=== PATIENT | female | born 1995 | race American Indian/Alaskan Native ===

== ENCOUNTER 2018-07-17 10:19 | Emergency (ER) | payer MEDICAID, OTHER ==
[2018-07-17] MEDS ORDERED: NACL 0.9% 1000 ML 1,000 ML IV ONE (11:00)
[2018-07-17] MEDS ORDERED: REGLAN IV ONE (11:00)
--- NOTE | 2018-07-17 11:03 | Emergency Department Report ---
HPI - General Chief Complaint: Nausea/Vomiting/Diarrhea Time Seen by Provider: 07/17/18 10:55 - HPI HPI: Room 18 The patient is a 23-year-old female presenting with a chief complaint abdominal pain nausea vomiting. The patient states she is and her last menstrual cycle occurred 06/06/2018. The patient states she has not yet seen an ENVIRONMENTAL PROGRAMS MANAGER fo r this . Patient states for the past 2-3 week she's had intermittent lower abdominal pain associated with nausea and vomiting. Patient denies diarrhea, fever, dysuria or hematuria. Patient states her breasts have been tender Location: [See above] Duration: 2-3 weeks Quality: Pain Severity: Moderate Modifying factors: [see above] Context: [see above] Mode of transportation: [not driving] ED Past Medical Hx - Past Medical History Hx Asthma: Yes - Surgical History Past Surgical History?: No - Family History Family history: no significant - Social History Smoking Status: Never Smoker Substance Use Type: None (denies illicit drug use) - Medications Home Medications: Home Medications Medication Instructions Recorded Confirmed Last Taken Type Nitrofurantoin Monohyd/M-Cryst 100 mg PO Q12H #20 capsule 04/24/18 Unknown Rx [Macrobid 100 mg Capsule] ED Review of Systems ROS: Stated complaint: NAUSEA/STOMACH/HEADACHES Other details as noted in HPI Constitutional: denies: fever Eyes: denies: eye pain ENT: denies: throat pain Respiratory: no symptoms reported Cardiovascular: denies: chest pain Endocrine: no symptoms reported Gastrointestinal: abdominal pain, nausea, vomiting, constipation. denies: diarrhea Genitourinary: denies: dysuria, hematuria Musculoskeletal: denies: back pain Neurological: denies: headache Physical Exam - Physical Exam Vital Signs: Vital Signs 07/17/18 10:36 Temperature 98.3 F Pulse Rate 76 Respiratory 16 Rate Blood Pressure 100/42 O2 Sat by Pulse 100 Oximetry Physical Exam: GENERAL: The patient is well-developed well-nourished female lying on stretcher not appearing to be in acute distress. [] HEENT: Normocephalic. Atraumatic. Extraocular motions are intact. Patient has moist mucous membranes. NECK: Supple. Trachea midline CHEST/LUNGS: Clear to auscultation. There is no respiratory distress noted. HEART/CARDIOVASCULAR: Regular. There is no tachycardia. There is no gallop rub or murmur. ABDOMEN: Abdomen is soft, with mild discomfort to palpation in the right lower quadrant and suprapubic region. Patient has normal bowel sounds. There is no abdominal distention. SKIN: There is no rash. There is no edema. There is no diaphoresis. NEURO: The patient is awake, alert, and oriented. The patient is cooperative. The patient has normal speech MUSCULOSKELETAL: There is no evidence of acute injury. ED Course Vital Signs 07/17/18 10:36 Temperature 98.3 F Pulse Rate 76 Respiratory 16 Rate Blood Pressure 100/42 O2 Sat by Pulse 100 Oximetry ED Medical Decision Making - Lab Data Result diagrams: 07/17/18 11:03 07/17/18 11:03 Laboratory Tests 07/17/18 07/17/18 07/17/18 11:03 11:03 11:03 WBC 6.6 RBC 3.64 L Hgb 11.5 Hct 33.9 MCV 93 MCH 32 MCHC 34 RDW 12.8 L Plt Count 222 Lymph % (Auto) 23.0 [place] % (Auto) 8.1 H Eos % (Auto) 1.4 Baso % (Auto) 0.3 Lymph # 1.5 [place] # 0.5 Eos # 0.1 Baso # 0.0 Seg Neutrophils % 67.2 Seg Neutrophils # 4.4 Sodium 136 L Potassium 3.7 Chloride 105.1 Carbon Dioxide 23 Anion Gap 12 BUN 8 Creatinine 0.4 L Estimated GFR > 60 BUN/Creatinine Ratio 20 Glucose 86 Calcium 8.4 Total Bilirubin 0.30 AST 12 ALT 7 Alkaline Phosphatase 48 Total Protein 5.8 L Albumin 3.6 L Albumin/Globulin Ratio 1.6 Lipase 32 HCG, Quant 00207 H Urine Color Urine Turbidity Urine pH Ur Specific [place] Urine Protein Urine Glucose (UA) Urine Ketones Urine Blood Urine Nitrite Urine Bilirubin Urine Urobilinogen Ur Leukocyte Esterase Urine WBC (Auto) Urine RBC (Auto) U Epithel Cells (Auto) Urine Bacteria (Auto) Urine Mucus 07/17/18 11:27 WBC RBC Hgb Hct MCV MCH MCHC RDW Plt Count Lymph % (Auto) [place] % (Auto) Eos % (Auto) Baso % (Auto) Lymph # [place] # Eos # Baso # Seg Neutrophils % Seg Neutrophils # Sodium Potassium Chloride Carbon Dioxide Anion Gap BUN Creatinine Estimated GFR BUN/Creatinine Ratio Glucose Calcium Total Bilirubin AST ALT Alkaline Phosphatase Total Protein Albumin Albumin/Globulin Ratio Lipase HCG, Quant Urine Color Yellow Urine Turbidity Clear Urine pH 6.0 Ur Specific [place] 1.029 Urine Protein <15 mg/dl Urine Glucose (UA) Neg Urine Ketones Neg Urine Blood Neg Urine Nitrite Neg Urine Bilirubin Neg Urine Urobilinogen 2.0 Ur Leukocyte Esterase Tr Urine WBC (Auto) 2.0 Urine RBC (Auto) 2.0 U Epithel Cells (Auto) 3.0 Urine Bacteria (Auto) 1+ Urine Mucus Few - Differential Diagnosis , UTI, ectopic Critical care attestation.: If time is entered above; I have spent that time in minutes in the direct care of this critically ill patient, excluding procedure time. ED Disposition Clinical Impression: , Abdominal pain, bradycardia Disposition: - TO HOME OR SELFCARE Is pt being admited?: No Does the pt Need Aspirin: No Condition: Stable Additional Instructions: Return to the emergency department immediately should you develop worsening symptoms, fever, inability to tolerate food or liquid or any other concerns. Referrals: PRIMARY MD DAREK [Primary Care Provider] - 3-5 Days NAMITA VILLA MD [Staff Physician] - 3-5 Days (Dr. Villa is an ENVIRONMENTAL PROGRAMS MANAGER. Please follow-up with her for further evaluation) Time of Disposition: 14:05
[2018-07-17 11:21] LABS: Basophils % (Auto) 0.3 % (0.0-1.8); Eosinophils # (Auto) 0.1 K/mm3 (0.0-0.4); Eosinophils % (Auto) 1.4 % (0.0-4.3); Hematocrit 33.9 % (30.3-42.9); Hemoglobin 11.5 gm/dl (10.1-14.3); Lymphocytes # (Auto) 1.5 K/mm3 (1.2-5.4); Mean Corpuscular HGB Conc 34 % (30-34); Mean Corpuscular Volume 93 fl (79-97); Monocytes # (Auto) 0.5 K/mm3 (0.0-0.8); Monocytes % (Auto) 8.1 % (0.0-7.3); Platelet Count 222 K/mm3 (140-440); Red Blood Count 3.64 M/mm3 (3.65-5.03); Red Cell Distribution Width 12.8 % (13.2-15.2)
[2018-07-17 11:34] LABS: Alanine Aminotransferase 7 units/L (7-56); Albumin 3.6 g/dL (3.9-5); BUN/Creatinine Ratio 20; Blood Urea Nitrogen 8 mg/dL (7-17); Calcium 8.4 mg/dL (8.4-10.2); Hemolysis Index 7
[2018-07-17 11:43] LABS: Bacteria,Urine 1+ /HPF (Negative); Bilirubin,Urine NEG (Negative); Blood,Urine NEG (Negative); Color,Urine Yellow (Yellow); Mucus,Urine FEW /HPF; Protein,Urine <15 mg/dL mg/dL (Negative)
--- NOTE | 2018-07-17 13:47 | Ultrasound Report ---
ULTRASOUND OB LESS THAN 14 WEEKS FETUS ULTRASOUND OB TRANSVAGINAL History: Abdominal pain during , beta hCG level of 34,605. Technique: Transabdominal and transvaginal ultrasound imaging. Comparison: None. Findings: The uterus is retroflexed. The uterus measures 9.8 x 6.7 x 7.3 cm. No uterine mass is appreciated. An intrauterine gestational sac containing a small pole and yolk sac is identified. heart rate measures 62 beats per minute. No subchorionic hemorrhage is detected. The cervix is unremarkable. [place] rump length measures 3.8 mm which correlates with a 6 week 0 day . The right ovary measures 3.9 x 2.8 x 3.7 cm. A 2.3 cm cyst is identified in the right ovary. The left ovary measures 3.4 x 2.5 x 3.1 cm. A 2.7 cm cyst is identified in the left ovary. Impression: Viable, single intrauterine as described. heart rate is slightly low measuring 62 beats per minutes. Bilateral ovarian cysts.
[2018-07-17 14:58] VITALS: BP 84/53
== END 2018-07-17 15:01 | disposition home or self-care (01) ==
LOC: ED 10:19 → MERGE 10:19 → ED 15:01
DX: O21.9 Vomiting of pregnancy, unspecified (principal); O99.511 Diseases of the respiratory system complicating pregnancy, first trimester; J45.909 Unspecified asthma, uncomplicated; Z3A.01 Less than 8 weeks gestation of pregnancy
CPT/HCPCS: 36415; 76801; 76817; 80053; 81001; 83690; 84702; 85025; 96361; 96374; 99284; J2765; J7030

== ENCOUNTER 2018-08-31 15:36 | Emergency (ER) | payer MEDICAID, OTHER ==
--- NOTE | 2018-08-31 16:52 | Emergency Department Report ---
Blank Doc - Documentation Documentation: This is a 23 y.o. female that presents with flu-like and 12 weeks . She also complains of vaginal spotting that started last night. LMP 06/06/18, A0. This initial assessment diagnostic orders/clinical plan/treatment(s) is/are subject to change based on patient's health status, clinical progression and re- assessment by fellow clinical providers in the ED. Further treatment and workup at subsequent clinical providers discretion. Patient/guardians urged not to elope from ED s their condition may be serious if not clinically assessed and managed. Initial orders include: 1- Labs Fast track for further evaluation.
[2018-08-31 17:22] LABS: Hemoglobin 12.8 gm/dl (10.1-14.3); Mean Corpuscular HGB Conc 34 % (30-34); Mean Corpuscular Volume 93 fl (79-97); Platelet Count 238 K/mm3 (140-440); Red Blood Count 4.11 M/mm3 (3.65-5.03); Red Cell Distribution Width 12.8 % (13.2-15.2)
[2018-08-31 17:35] LABS: Bacteria,Urine 1+ /HPF (Negative); Bilirubin,Urine NEG (Negative); Blood,Urine NEG (Negative); Color,Urine Yellow (Yellow); Mucus,Urine 1+ /HPF
[2018-08-31 18:42] LABS: Basophils % (Manual) 0 % (0.0-1.8); Monocytes % (Manual) 0 % (0.0-7.3); RBC Morphology Normal; Total Cells Counted 100
[2018-08-31] MEDS ORDERED: TYLENOL PO ONE (19:39)
[2018-08-31] MEDS ORDERED: ROCEPHIN IM ONE (19:39)
[2018-08-31] MEDS ORDERED: XYLOCAINE 1% MPF 5 mL INFILTRATI ONE (19:39)
[2018-08-31] MEDS ORDERED: ZOFRAN ODT PO ONE (19:39)
--- NOTE | 2018-08-31 20:07 | Emergency Department Report ---
ED General Adult HPI - General Chief complaint: Upper Respiratory Infection Stated complaint: 12WKS PREG/FLU LIKE SYMPTOMS Time Seen by Provider: 08/31/18 16:49 Source: patient Mode of arrival: Ambulatory Limitations: No Limitations - History of Present Illness Initial comments: Pt is a 23 y/o aaf 12 weeks G2, P1, A0 with hx of asthma who presents for abd pain cramping and cough with noc wheezing abd pain described as cramping with vaginal spotting last vaginal spotting yesterday , there is no n/v no fever or chills pt does endorse urinary frequency no urgency no hematuria no back pain no hx of renal stones, uri symptoms include productive cough yellow rhinorrhea noc wheezing no fever noted in triage symptoms are exacerbated by environmental exposure symptoms are relieved by rest. Onset/Timin -: days(s) Location: abdomen (superpubic ) Radiation: non-radiation Severity scale (0 -10): 2 Quality: other (cramping ) Consistency: intermittent Improves with: rest Worsens with: movement Associated Symptoms: cough, shortness of breath Treatments Prior to Arrival: none - Related Data Previous Rx's Medication Instructions Recorded Last Taken Type Nitrofurantoin Monohyd/M-Cryst 100 mg PO Q12H #20 capsule 04/24/18 Unknown Rx [Macrobid 100 mg Capsule] ALBUTEROL Inhaler(NF) [VENTOLIN 2 puff IH Q4H PRN #1 inha 08/31/18 Unknown Rx Inhaler(NF)] Acetaminophen [Tylenol] 650 mg PO QID PRN #30 capsule 08/31/18 Unknown Rx Azithromycin [Zithromax Z-RENZO] 250 mg PO DAILY #6 tab 08/31/18 Unknown Rx guaiFENesin 400 mg PO Q4H PRN #24 tablet 08/31/18 Unknown Rx predniSONE [Deltasone] 40 mg PO QDAY 5 Days #10 tab 08/31/18 Unknown Rx Allergies Allergy/AdvReac Type Severity Reaction Status Date / Time No Known Allergies Allergy Unverified 04/23/18 20:50 ED Review of Systems ROS: Stated complaint: 12WKS PREG/FLU LIKE SYMPTOMS Other details as noted in HPI Constitutional: denies: chills, fever Eyes: denies: eye pain, eye discharge, vision change ENT: ear pain, congestion Respiratory: cough, shortness of breath, wheezing Cardiovascular: denies: chest pain, palpitations Endocrine: no symptoms reported Gastrointestinal: abdominal pain Genitourinary: frequency. denies: urgency, dysuria, hematuria, discharge, abnormal menses, dyspareunia Musculoskeletal: denies: back pain, joint swelling, arthralgia Skin: denies: rash, lesions Neurological: denies: headache, weakness, paresthesias Psychiatric: denies: anxiety, depression Hematological/Lymphatic: denies: easy bleeding, easy bruising ED Past Medical Hx - Past Medical History Hx Asthma: Yes - Surgical History Past Surgical History?: No - Social History Smoking Status: Never Smoker Substance Use Type: Other - Medications Home Medications: Home Medications Medication Instructions Recorded Confirmed Last Taken Type Nitrofurantoin Monohyd/M-Cryst 100 mg PO Q12H #20 capsule 04/24/18 Unknown Rx [Macrobid 100 mg Capsule] ALBUTEROL Inhaler(NF) [VENTOLIN 2 puff IH Q4H PRN #1 inha 08/31/18 Unknown Rx Inhaler(NF)] Acetaminophen [Tylenol] 650 mg PO QID PRN #30 capsule 08/31/18 Unknown Rx Azithromycin [Zithromax Z-RENZO] 250 mg PO DAILY #6 tab 08/31/18 Unknown Rx guaiFENesin 400 mg PO Q4H PRN #24 tablet 08/31/18 Unknown Rx predniSONE [Deltasone] 40 mg PO QDAY 5 Days #10 tab 08/31/18 Unknown Rx ED Physical Exam - General Limitations: No Limitations General appearance: alert, in no apparent distress - Head Head exam: Present: atraumatic, normocephalic - Eye Eye exam: Present: normal appearance, PERRL, EOMI Pupils: Present: normal accommodation - ENT ENT exam: Present: normal orophraynx, mucous membranes moist, TM's normal bilaterally, normal external ear exam - Expanded ENT Exam Expanded Throat exam: Positive: tonsillar erythema, other (uvula midline clear post nasal drip noted no stridor no wheezing ). Negative: tonsillomegaly, tonsillar exudate, R peritonsillar mass, L peritonsillar mass - Neck Neck exam: Present: normal inspection, full ROM. Absent: tenderness, meningismus, lymphadenopathy, thyromegaly - Respiratory Respiratory exam: Present: normal lung sounds bilaterally. Absent: respiratory distress, wheezes, stridor, chest wall tenderness, prolonged expiratory - Cardiovascular Cardiovascular Exam: Present: regular rate, normal rhythm, normal heart sounds. Absent: systolic murmur, diastolic murmur, rubs, gallop - GI/Abdominal GI/Abdominal exam: Present: soft, normal bowel sounds. Absent: distended, tenderness, guarding, rebound, bruit, hernia - Rectal Rectal exam: Present: deferred - External exam: Present: other (exam deferred per patient ) - Extremities Exam Extremities exam: Present: normal inspection, full ROM, normal capillary refill. Absent: tenderness, pedal edema, joint swelling - Back Exam Back exam: Present: normal inspection, full ROM. Absent: tenderness, CVA tenderness (R), CVA tenderness (L), muscle spasm, paraspinal tenderness, rash noted - Neurological Exam Neurological exam: Present: alert, oriented X3, CN II-XII intact, normal gait, reflexes normal - Psychiatric Psychiatric exam: Present: normal affect, normal mood - Skin Skin exam: Present: warm, dry, intact, normal color. Absent: rash ED Course Vital Signs 08/31/18 08/31/18 08/31/18 16:21 16:48 20:33 Temperature 98 F 98 F Pulse Rate 103 H 103 H Respiratory 18 18 16 Rate Blood Pressure 108/46 Blood Pressure 108/46 [Right] O2 Sat by Pulse 100 100 Oximetry ED Medical Decision Making - Lab Data Result diagrams: 08/31/18 16:59 Labs 08/31/18 08/31/18 08/31/18 16:59 16:59 16:59 WBC 8.9 RBC 4.11 Hgb 12.8 Hct 38.0 MCV 93 MCH 31 MCHC 34 RDW 12.8 L Plt Count 238 Add Manual Diff Complete Total Counted 100 Seg Neuts % (Manual) 81.0 H Band Neutrophils % 0 Lymphocytes % (Manual) 14.0 Reactive Lymphs % (Man) 0 Monocytes % (Manual) 0 Eosinophils % (Manual) 5.0 H Basophils % (Manual) 0 Metamyelocytes % 0 Myelocytes % 0 Promyelocytes % 0 Blast Cells % 0 Nucleated RBC % Not Reportable Seg Neutrophils # Man 7.2 Band Neutrophils # 0.0 Lymphocytes # (Manual) 1.2 Abs React Lymphs (Man) 0.0 Monocytes # (Manual) 0.0 Eosinophils # (Manual) 0.4 Basophils # (Manual) 0.0 Metamyelocytes # 0.0 Myelocytes # 0.0 Promyelocytes # 0.0 Blast Cells # 0.0 WBC Morphology Not Reportable Hypersegmented Neuts Not Reportable Hyposegmented Neuts Not Reportable Hypogranular Neuts Not Reportable Smudge Cells Not Reportable Toxic Granulation Not Reportable Toxic Vacuolation Not Reportable Dohle Bodies Not Reportable Pelger-Huet Anomaly Not Reportable Tiburcio Rods Not Reportable Platelet Estimate Appears normal Clumped Platelets Not Reportable Plt Clumps, EDTA Not Reportable Large Platelets Not Reportable Giant Platelets Not Reportable Platelet Satelliting Not Reportable Plt Morphology Comment Not Reportable RBC Morphology Normal Dimorphic RBCs Not Reportable Polychromasia Not Reportable Hypochromasia Not Reportable Poikilocytosis Not Reportable Anisocytosis Not Reportable Microcytosis Not Reportable Macrocytosis Not Reportable Spherocytes Not Reportable Pappenheimer Bodies Not Reportable Sickle Cells Not Reportable Target Cells Not Reportable Tear Drop Cells Not Reportable Ovalocytes Not Reportable Helmet Cells Not Reportable [place] Bodies Not Reportable [place] Rings Not Reportable Mather Cells Not Reportable Bite Cells Not Reportable Crenated Cell Not Reportable Elliptocytes Not Reportable Acanthocytes (Spur) Not Reportable Rouleaux Not Reportable Hemoglobin C Crystals Not Reportable Schistocytes Not Reportable Malaria parasites Not Reportable [place]ley Bodies Not Reportable Hem Pathologist Commnt No HCG, Quant 06092 H Urine Color Urine Turbidity Urine pH Ur Specific [place] Urine Protein Urine Glucose (UA) Urine Ketones Urine Blood Urine Nitrite Urine Bilirubin Urine Urobilinogen Ur Leukocyte Esterase Urine WBC (Auto) Urine RBC (Auto) U Epithel Cells (Auto) Urine Bacteria (Auto) Urine Mucus Urine Yeast (Budding) Blood Type AB POSITIVE Antibody Screen Negative 08/31/18 17:21 WBC RBC Hgb Hct MCV MCH MCHC RDW Plt Count Add Manual Diff Total Counted Seg Neuts % (Manual) Band Neutrophils % Lymphocytes % (Manual) Reactive Lymphs % (Man) Monocytes % (Manual) Eosinophils % (Manual) Basophils % (Manual) Metamyelocytes % Myelocytes % Promyelocytes % Blast Cells % Nucleated RBC % Seg Neutrophils # Man Band Neutrophils # Lymphocytes # (Manual) Abs React Lymphs (Man) Monocytes # (Manual) Eosinophils # (Manual) Basophils # (Manual) Metamyelocytes # Myelocytes # Promyelocytes # Blast Cells # WBC Morphology Hypersegmented Neuts Hyposegmented Neuts Hypogranular Neuts Smudge Cells Toxic Granulation Toxic Vacuolation Dohle Bodies Pelger-Huet Anomaly Tiburcio Rods Platelet Estimate Clumped Platelets Plt Clumps, EDTA Large Platelets Giant Platelets Platelet Satelliting Plt Morphology Comment RBC Morphology Dimorphic RBCs Polychromasia Hypochromasia Poikilocytosis Anisocytosis Microcytosis Macrocytosis Spherocytes Pappenheimer Bodies Sickle Cells Target Cells Tear Drop Cells Ovalocytes Helmet Cells [place] Bodies [place] Rings Mather Cells Bite Cells Crenated Cell Elliptocytes Acanthocytes (Spur) Rouleaux Hemoglobin C Crystals Schistocytes Malaria parasites Arley Bodies Hem Pathologist Commnt HCG, Quant Urine Color Yellow Urine Turbidity Clear Urine pH 7.0 Ur Specific [place] 1.031 H Urine Protein 30 mg/dl Urine Glucose (UA) Neg Urine Ketones Neg Urine Blood Neg Urine Nitrite Neg Urine Bilirubin Neg Urine Urobilinogen 4.0 Ur Leukocyte Esterase Mod Urine WBC (Auto) 28.0 H Urine RBC (Auto) 8.0 U Epithel Cells (Auto) 4.0 Urine Bacteria (Auto) 1+ Urine Mucus 1+ Urine Yeast (Budding) Few Blood Type Antibody Screen - Medical Decision Making pt dna for US OB, called pt left message to return to ed, for completion of evaluation and peanut picker rx for bronchitis, plan: dc with tx for bronchitis, will prepare discharge rx and instructions including follow up with pcp and obgyn, pt advised provider last spotting was yesterday , there is no abd pain at this time, no fever no chills no n/v pt is tolerating po intake , will dc with rx for albuterol inhaler, prednisone, tylenol, loratadine, zpack for uti, given rocephin 1gm im in ed, Critical care attestation.: If time is entered above; I have spent that time in minutes in the direct care of this critically ill patient, excluding procedure time. ED Disposition Clinical Impression: Genitourinary tract infection during in first trimester, Bronchitis Disposition: DC-01 TO HOME OR SELFCARE Is pt being admited?: No Does the pt Need Aspirin: No Condition: Stable Instructions: Chronic Bronchitis (ED) Prescriptions: Acetaminophen [Tylenol] 650 mg PO QID PRN #30 capsule PRN Reason: pain ALBUTEROL Inhaler(NF) [VENTOLIN Inhaler(NF)] 2 puff IH Q4H PRN #1 inha PRN Reason: shortness of breath wheezing Azithromycin [Zithromax Z-RENZO] 250 mg PO DAILY #6 tab guaiFENesin 400 mg PO Q4H PRN #24 tablet PRN Reason: Cough predniSONE [Deltasone] 40 mg PO QDAY 5 Days #10 tab Referrals: SHAJI KWAN MD [Staff Physician] - 3-5 Days RADHA APONTE [Primary Care Provider] - 3-5 Days Forms: Work/School Release Form(ED) Time of Disposition: 21:06
[2018-08-31 21:24] VITALS: BP 110/58
== END 2018-08-31 21:24 | disposition home or self-care (01) ==
LOC: ED 15:36 → MERGE 15:36 → ED 21:24
DX: O99.511 Diseases of the respiratory system complicating pregnancy, first trimester (principal); O23.41 Unspecified infection of urinary tract in pregnancy, first trimester; Z3A.12 12 weeks gestation of pregnancy
CPT/HCPCS: 36415; 81001; 84702; 85007; 85025; 86850; 86900; 86901; 96372; 99283; J0696; Q0162

== ENCOUNTER 2019-08-21 14:20 | Emergency (ER) | payer OTHER ==
[2019-08-21 14:37] VITALS: BP 126/82
--- NOTE | 2019-08-21 16:04 | Emergency Department Report ---
Chief Complaint: Abdominal Pain Stated Complaint: ABD PAIN - HPI History of Present Illness: 4 days of lower abd/pelvic pain. Vaginal rash that rosado. No dysuria, vag bleeding or discharge. Gave 5 months ago with vaginal delivery. IUD in place now. No PMHX. - ROS Review of Systems: +Lower abd/pelvic pain, burning vaginal rash -Vaginal d/c, dysuria, fever, back pain - Exam Vital Signs: Vital Signs 08/21/19 14:24 Temperature 98.7 F Pulse Rate 105 H Respiratory 18 Rate Blood Pressure 126/82 O2 Sat by Pulse 96 Oximetry Physical Exam: AAO x 3. Ambulatory into triage. No acute distress. MSE screening note: Focused history and physical exam performed. Due to findings the following was ordered: U/A, Upreg To fast track. May need pelvic or at least visual examination of rash Patient discussed with doctor:: ASTRID POON ED Disposition for MSE Condition: Stable Instructions: Abdominal Pain (ED)
[2019-08-21 22:07] LABS: Bilirubin,Urine NEG (Negative); Blood,Urine NEG (Negative); Color,Urine Yellow (Yellow); Mucus,Urine 3+ /HPF; Protein,Urine <15 mg/dL mg/dL (Negative)
[2019-08-21 22:09] LABS: HCG Qualitative,Urine Negative (Negative)
--- NOTE | 2019-08-21 23:13 | Emergency Department Report ---
ED Female HPI - General Chief complaint: Abdominal Pain Stated complaint: ABD PAIN; suprapubic rash; vaginal discharge Source: patient Mode of arrival: Ambulatory Limitations: No Limitations - History of Present Illness Initial comments: Patient is a A0 24-year-old -[place] female with no past medical history who presents to the ED record in no acute onset persistent itchy painful suprapubic erythematous macular papular rashes diffusely after shaving her pubic hair and also complains of low abdominal pain with vaginal discharge for one week. Patient denies fever, chills, dysuria, urinary frequency and urgency, low back pain, dizziness, fever, chills, nausea, vomiting, diarrhea, cough, chest pain or shortness of breath or vaginal bleeding. MD Complaint: vaginal discharge, pelvic pain, other (suprapubic rash) -: Sudden, days(s) (3) Location: labia, suprapubic Radiation: non-radiating Severity: moderate Severity scale (0 -10): 4 Quality: dull, aching Consistency: constant Improves with: none Worsens with: none Are you Now?: No Last Menstrual Period: 08/17/19 EDC: 05/23/20 Associated Symptoms: denies other symptoms, vaginal discharge, abdominal pain. denies: vaginal bleeding, nausea/vomiting, fever/chills, headaches, loss of appetite, dysuria, hematuria, rash, seizure, shortness of breath, syncope, weakness, other - Related Data Sexually active: Yes : 2 Para: 2 A: 0 Previous Rx's Medication Instructions Recorded Last Taken Type Cyclobenzaprine [Flexeril] 10 mg PO TID PRN #12 tablet 12/26/16 Unknown Rx Ibuprofen [Motrin] 600 mg PO Q8H PRN #25 tablet 12/26/16 Unknown Rx Cephalexin [Keflex] 500 mg PO TID #30 capsule 02/01/17 Unknown Rx Sulfamethoxazole/Trimethoprim 1 each PO BID #20 tablet 02/01/17 Unknown Rx [Bactrim DS TAB] traMADoL [Ultram] 50 mg PO Q4HR PRN #20 tablet 02/01/17 Unknown Rx Nitrofurantoin Monohyd/M-Cryst 100 mg PO Q12H #20 capsule 04/24/18 Unknown Rx [Macrobid 100 mg Capsule] Cetirizine HCl/Pseudoephedrine 1 each PO QDAY #30 tab.er.12h 07/02/18 Unknown Rx [Zyrtec-D Tablet] Fluticasone [Flonase] 1 spray NS QDAY #1 bottle 07/02/18 Unknown Rx traMADoL [Ultram] 50 mg PO Q6HR PRN #20 tablet 07/02/18 Unknown Rx Acetaminophen 500 mg PO Q8H PRN #20 tablet 07/21/18 Unknown Rx ALBUTEROL Inhaler(NF) [VENTOLIN 2 puff IH Q4H PRN #1 inha 08/31/18 Unknown Rx Inhaler(NF)] Acetaminophen [Tylenol] 650 mg PO QID PRN #30 capsule 08/31/18 Unknown Rx Azithromycin [Zithromax Z-RENZO] 250 mg PO DAILY #6 tab 08/31/18 Unknown Rx Ondansetron [Zofran Odt] 4 mg PO Q8HR PRN #12 tab.rapdis 08/31/18 Unknown Rx guaiFENesin 400 mg PO Q4H PRN #24 tablet 08/31/18 Unknown Rx predniSONE [Deltasone] 40 mg PO QDAY 5 Days #10 tab 08/31/18 Unknown Rx DOXYCYCLINE Hyclate [Vibramycin 100 mg PO Q12HR #20 capsule 08/21/19 Unknown Rx CAP] Ibuprofen [Motrin] 600 mg PO Q8H PRN #20 tablet 08/21/19 Unknown Rx Triamcinolone Acetonide 1 applicatio TP Q12H #1 tube 08/21/19 Unknown Rx [Triamcinolone Acetonide Oint 0.5%] metroNIDAZOLE [Flagyl] 500 mg PO Q12HR #14 tab 08/21/19 Unknown Rx Allergies Allergy/AdvReac Type Severity Reaction Status Date / Time No Known Allergies Allergy Unverified 09/04/18 10:03 ED Review of Systems ROS: Stated complaint: ABD PAIN Other details as noted in HPI Constitutional: denies: chills, fever Eyes: denies: eye pain, eye discharge, vision change ENT: denies: ear pain, throat pain Respiratory: denies: cough, shortness of breath, wheezing Cardiovascular: denies: chest pain, palpitations Endocrine: no symptoms reported Gastrointestinal: abdominal pain (suprapubic), other (erythematous maculopapular rash on pubic area). denies: nausea, diarrhea Genitourinary: discharge. denies: urgency, dysuria Musculoskeletal: denies: back pain, joint swelling, arthralgia Skin: rash (erythematous maculopapular rash on pupic area), pruritus. denies: lesions Neurological: denies: headache, weakness, paresthesias Psychiatric: denies: anxiety, depression Hematological/Lymphatic: denies: easy bleeding, easy bruising ED Past Medical Hx - Past Medical History Hx Asthma: Yes Additional medical history: vaginal delivery x 1 - Surgical History Additional Surgical History: - Social History Smoking Status: Never Smoker Substance Use Type: None - Medications Home Medications: Home Medications Medication Instructions Recorded Confirmed Last Taken Type Cyclobenzaprine [Flexeril] 10 mg PO TID PRN #12 tablet 12/26/16 Unknown Rx Ibuprofen [Motrin] 600 mg PO Q8H PRN #25 tablet 12/26/16 Unknown Rx Cephalexin [Keflex] 500 mg PO TID #30 capsule 02/01/17 Unknown Rx Sulfamethoxazole/Trimethoprim 1 each PO BID #20 tablet 02/01/17 Unknown Rx [Bactrim DS TAB] traMADoL [Ultram] 50 mg PO Q4HR PRN #20 tablet 02/01/17 Unknown Rx Nitrofurantoin Monohyd/M-Cryst 100 mg PO Q12H #20 capsule 04/24/18 Unknown Rx [Macrobid 100 mg Capsule] Cetirizine HCl/Pseudoephedrine 1 each PO QDAY #30 tab.er.12h 07/02/18 Unknown Rx [Zyrtec-D Tablet] Fluticasone [Flonase] 1 spray NS QDAY #1 bottle 07/02/18 Unknown Rx traMADoL [Ultram] 50 mg PO Q6HR PRN #20 tablet 07/02/18 Unknown Rx Acetaminophen 500 mg PO Q8H PRN #20 tablet 07/21/18 Unknown Rx ALBUTEROL Inhaler(NF) [VENTOLIN 2 puff IH Q4H PRN #1 inha 08/31/18 Unknown Rx Inhaler(NF)] Acetaminophen [Tylenol] 650 mg PO QID PRN #30 capsule 08/31/18 Unknown Rx Azithromycin [Zithromax Z-RENZO] 250 mg PO DAILY #6 tab 08/31/18 Unknown Rx Ondansetron [Zofran Odt] 4 mg PO Q8HR PRN #12 tab.rapdis 08/31/18 Unknown Rx guaiFENesin 400 mg PO Q4H PRN #24 tablet 08/31/18 Unknown Rx predniSONE [Deltasone] 40 mg PO QDAY 5 Days #10 tab 08/31/18 Unknown Rx DOXYCYCLINE Hyclate [Vibramycin 100 mg PO Q12HR #20 capsule 08/21/19 Unknown Rx CAP] Ibuprofen [Motrin] 600 mg PO Q8H PRN #20 tablet 08/21/19 Unknown Rx Triamcinolone Acetonide 1 applicatio TP Q12H #1 tube 08/21/19 Unknown Rx [Triamcinolone Acetonide Oint 0.5%] metroNIDAZOLE [Flagyl] 500 mg PO Q12HR #14 tab 08/21/19 Unknown Rx ED Physical Exam - General Limitations: No Limitations General appearance: alert, in no apparent distress - Head Head exam: Present: atraumatic, normocephalic, normal inspection - Eye Eye exam: Present: normal appearance, PERRL, EOMI Pupils: Present: normal accommodation - ENT ENT exam: Present: normal exam, normal orophraynx, mucous membranes moist, TM's normal bilaterally, normal external ear exam - Neck Neck exam: Present: normal inspection, full ROM. Absent: tenderness - Respiratory Respiratory exam: Present: normal lung sounds bilaterally. Absent: respiratory distress, wheezes, rales, rhonchi, chest wall tenderness, accessory muscle use, decreased breath sounds, prolonged expiratory - Cardiovascular Cardiovascular Exam: Present: regular rate, normal rhythm, normal heart sounds. Absent: systolic murmur, diastolic murmur, rubs, gallop - GI/Abdominal GI/Abdominal exam: Present: soft, normal bowel sounds. Absent: tenderness, hyperactive bowel sounds, hypoactive bowel sounds, organomegaly - External exam: Present: erythema, other (mildly erythematous suprapubic maculopapular rashes) Speculum exam: Present: vaginal discharge Bi-manual exam: Present: normal bi-manual exam - Extremities Exam Extremities exam: Present: normal inspection, full ROM, normal capillary refill - Back Exam Back exam: Present: normal inspection, full ROM. Absent: tenderness, CVA tenderness (L), muscle spasm - Neurological Exam Neurological exam: Present: alert, oriented X3, CN II-XII intact, normal gait, reflexes normal - Psychiatric Psychiatric exam: Present: normal affect, normal mood - Skin Skin exam: Present: warm, dry, intact, normal color, rash (mildly erythematous maculopapular rashes on pubic area) ED Course Vital Signs 08/21/19 14:24 Temperature 98.7 F Pulse Rate 105 H Respiratory 18 Rate Blood Pressure 126/82 O2 Sat by Pulse 96 Oximetry ED Medical Decision Making - Medical Decision Making This is a A0 24-year-old female who presented to the ED with suprapubic erythematous maculopapular rash, vaginal discharge and discomfort for the last 1 week, was in the last 2 days after shaving. In the ED, patient is alert and oriented 3 and is not in distress. Pelvic exam is unremarkable except for mild yellow vaginal discharge. Urinalysis is unremarkable and wet prep shows no evidence of Trichomonas or yeast but mild that Gardnerella vaginalis. Patient was discharged home on medication and advised follow-up with TRANSPORTATION DIRECTOR physician or primary care physician in 5-7 days for reevaluation. Patient was advised to return to the ED immediately if symptoms get worse. - Differential Diagnosis Folliculitis; Bacterial vaginosis, vaginitis; Trichomonas, UTI Critical care attestation.: If time is entered above; I have spent that time in minutes in the direct care of this critically ill patient, excluding procedure time. ED Disposition Clinical Impression: Acute folliculitis, Bacterial vaginosis Abdominal pain Qualifiers: Abdominal location: lower abdomen, unspecified Qualified Code(s): R10.30 - Lower abdominal pain, unspecified Disposition: - TO HOME OR SELFCARE Is pt being admited?: No Does the pt Need Aspirin: No Condition: Stable Instructions: Abdominal Pain (ED), Bacterial Vaginosis (ED), Folliculitis (ED) Additional Instructions: Take medication with food, drink plenty of fluids and follow-up with her primary care physician in 7-10 days for reevaluation. Return to the ED immediately if symptoms get worse. Prescriptions: metroNIDAZOLE [Flagyl] 500 mg PO Q12HR #14 tab Ibuprofen [Motrin] 600 mg PO Q8H PRN #20 tablet PRN Reason: Pain Triamcinolone Acetonide [Triamcinolone Acetonide Oint 0.5%] 1 applicatio TP Q12H #1 tube DOXYCYCLINE Hyclate [Vibramycin CAP] 100 mg PO Q12HR #20 capsule Referrals: PRIMARY CARE,MD [Primary Care Provider] - 3-5 Days Forms: STI Treatment and Prevention Time of Disposition: 23:17 Print Language: PASHTO
== END 2019-08-21 23:20 | disposition home or self-care (01) ==
LOC: ED 14:20
DX: L73.9 Follicular disorder, unspecified (principal); N76.0 Acute vaginitis; B96.89 Other specified bacterial agents as the cause of diseases classified elsewhere; R10.9 Unspecified abdominal pain; J45.909 Unspecified asthma, uncomplicated; Z98.890 Other specified postprocedural states; Z79.1 Long term (current) use of non-steroidal anti-inflammatories (NSAID); Z79.899 Other long term (current) drug therapy
CPT/HCPCS: 81001; 81025; 87210; 87591

== ENCOUNTER 2019-09-07 18:01 | Emergency (ER) | payer MEDICAID ==
--- NOTE | 2019-09-07 18:42 | Emergency Department Report ---
Chief Complaint: Urogenital-Female Stated Complaint: URINARY ISSUES Time Seen by Provider: 09/07/19 18:40 - HPI History of Present Illness: pt is a 24 yo female who presents for results of her swabs from 08/21/2019 she was seen at that time for the exact same complaints, UA was normal, G/C was negative, wet prep was negative, pt was given prescription for doxcycline and flagyl states she has had continued vaginal itching and discharge no diarrhea no fever no abd pain did not follow up with anyone PMHx none no allergies to meds Patient has already been worked up from this emergency department for this complaint with negative results, discussed with patient that she would need to see an [facility] SALES MANAGER due to continuing having issues to have further evaluation and examination advised pt to please follow up with the health department, [facility] SALES MANAGER or primary care clinic. please have a full STD panel performed. have any partner tested and treated as well. no sexual intercourse until you have been seen. wash with a non scented soap. return to the emergency room for any new or worsening symptoms. Patient is presenting with a nonmedical emergency at this time Nontoxic-appearing, vitals are normal, afebrile Patient referred to the appropriate resources MSE screening note: Focused history and physical exam performed. ED Disposition for MSE Clinical Impression: Vaginal discharge Disposition: Z- MED SCREENING EXAM-LEFT Is pt being admited?: No Does the pt Need Aspirin: No Condition: Stable Instructions: Vaginitis (ED) Additional Instructions: please follow up with the health department, [facility] SALES [facility]NAGER or primary care clinic. please have a full STD panel performed. have any partner tested and treated as well. no sexual intercourse until you have been seen. wash with a non scented soap. return to the emergency room for any new or worsening symptoms. Referrals: [facility] [Outside] - 2-3 Days [facility] [Provider Group] - 2-3 Days [facility] [Provider Group] - 2-3 Days [facility] [Provider Group] - 2-[address] [facility] [Outside] - 2-3 Days [facility] [Outside] - 2-3 Days Time of Disposition: 18:43 Print Language: KINYARWANDA
[2019-09-07 18:45] VITALS: BP 109/75
== END 2019-09-07 20:17 | disposition left against medical advice (07) ==
LOC: ED 18:01
DX: N89.8 Other specified noninflammatory disorders of vagina (principal)
CPT/HCPCS: 99281

== ENCOUNTER 2019-11-08 14:27 | Emergency (ER) | payer MEDICAID ==
[2019-11-08 14:32] VITALS: BP 106/64
[2019-11-08 15:15] LABS: Bilirubin,Urine NEG (Negative); Blood,Urine NEG (Negative); Color,Urine Amber (Yellow); Mucus,Urine 3+ /HPF
[2019-11-08 15:16] LABS: HCG Qualitative,Urine Negative (Negative)
--- NOTE | 2019-11-08 15:49 | Emergency Department Report ---
ED Female HPI - General Chief complaint: Urogenital-Female Stated complaint: UROGENITAL COMPLAINTS Time Seen by Provider: 11/08/19 15:35 Source: patient Mode of arrival: Ambulatory Limitations: No Limitations - History of Present Illness Initial comments: 24-year-old -Maced[place] female presents to the emergency room reporting that she has been having some burning with urination for a few days. Patient denies any vaginal discharge or pelvic pain. Patient also reports that her sexual partner was seen here earlier and was treated for STD. MD Complaint: dysuria Onset/Timin -: days(s) Consistency: intermittent Worsens with: urination Are you Now?: No - Related Data Previous Rx's Medication Instructions Recorded Last Taken Type Cyclobenzaprine [Flexeril] 10 mg PO TID PRN #12 tablet 12/26/16 Unknown Rx Ibuprofen [Motrin] 600 mg PO Q8H PRN #25 tablet 12/26/16 Unknown Rx Cephalexin [Keflex] 500 mg PO TID #30 capsule 02/01/17 Unknown Rx Sulfamethoxazole/Trimethoprim 1 each PO BID #20 tablet 02/01/17 Unknown Rx [Bactrim DS TAB] traMADoL [Ultram] 50 mg PO Q4HR PRN #20 tablet 02/01/17 Unknown Rx Nitrofurantoin Monohyd/M-Cryst 100 mg PO Q12H #20 capsule 04/24/18 Unknown Rx [Macrobid 100 mg Capsule] Cetirizine HCl/Pseudoephedrine 1 each PO QDAY #30 tab.er.12h 07/02/18 Unknown Rx [Zyrtec-D Tablet] Fluticasone [Flonase] 1 spray NS QDAY #1 bottle 07/02/18 Unknown Rx traMADoL [Ultram] 50 mg PO Q6HR PRN #20 tablet 07/02/18 Unknown Rx Acetaminophen 500 mg PO Q8H PRN #20 tablet 07/21/18 Unknown Rx ALBUTEROL Inhaler(NF) [VENTOLIN 2 puff IH Q4H PRN #1 inha 08/31/18 Unknown Rx Inhaler(NF)] Acetaminophen [Tylenol] 650 mg PO QID PRN #30 capsule 08/31/18 Unknown Rx Azithromycin [Zithromax Z-RENZO] 250 mg PO DAILY #6 tab 08/31/18 Unknown Rx Ondansetron [Zofran Odt] 4 mg PO Q8HR PRN #12 tab.rapdis 08/31/18 Unknown Rx guaiFENesin 400 mg PO Q4H PRN #24 tablet 08/31/18 Unknown Rx predniSONE [Deltasone] 40 mg PO QDAY 5 Days #10 tab 08/31/18 Unknown Rx DOXYCYCLINE Hyclate [Vibramycin 100 mg PO Q12HR #20 capsule 08/21/19 Unknown Rx CAP] Ibuprofen [Motrin] 600 mg PO Q8H PRN #20 tablet 08/21/19 Unknown Rx Triamcinolone Acetonide 1 applicatio TP Q12H #1 tube 08/21/19 Unknown Rx [Triamcinolone Acetonide Oint 0.5%] metroNIDAZOLE [Flagyl] 500 mg PO Q12HR #14 tab 08/21/19 Unknown Rx Allergies Allergy/AdvReac Type Severity Reaction Status Date / Time No Known Allergies Allergy Unverified 09/04/18 10:03 ED Review of Systems ROS: Stated complaint: UROGENITAL COMPLAINTS Other details as noted in HPI Comment: All other systems reviewed and negative ED Past Medical Hx - Past Medical History Previous Medical History?: Yes Hx Asthma: Yes Additional medical history: vaginal delivery x 1 - Surgical History Past Surgical History?: Yes Additional Surgical History: - Social History Smoking Status: Never Smoker Substance Use Type: None - Medications Home Medications: Home Medications Medication Instructions Recorded Confirmed Last Taken Type Cyclobenzaprine [Flexeril] 10 mg PO TID PRN #12 tablet 12/26/16 Unknown Rx Ibuprofen [Motrin] 600 mg PO Q8H PRN #25 tablet 12/26/16 Unknown Rx Cephalexin [Keflex] 500 mg PO TID #30 capsule 02/01/17 Unknown Rx Sulfamethoxazole/Trimethoprim 1 each PO BID #20 tablet 02/01/17 Unknown Rx [Bactrim DS TAB] traMADoL [Ultram] 50 mg PO Q4HR PRN #20 tablet 02/01/17 Unknown Rx Nitrofurantoin Monohyd/M-Cryst 100 mg PO Q12H #20 capsule 04/24/18 Unknown Rx [Macrobid 100 mg Capsule] Cetirizine HCl/Pseudoephedrine 1 each PO QDAY #30 tab.er.12h 07/02/18 Unknown Rx [Zyrtec-D Tablet] Fluticasone [Flonase] 1 spray NS QDAY #1 bottle 07/02/18 Unknown Rx traMADoL [Ultram] 50 mg PO Q6HR PRN #20 tablet 07/02/18 Unknown Rx Acetaminophen 500 mg PO Q8H PRN #20 tablet 07/21/18 Unknown Rx ALBUTEROL Inhaler(NF) [VENTOLIN 2 puff IH Q4H PRN #1 inha 08/31/18 Unknown Rx Inhaler(NF)] Acetaminophen [Tylenol] 650 mg PO QID PRN #30 capsule 08/31/18 Unknown Rx Azithromycin [Zithromax Z-RENZO] 250 mg PO DAILY #6 tab 08/31/18 Unknown Rx Ondansetron [Zofran Odt] 4 mg PO Q8HR PRN #12 tab.rapdis 08/31/18 Unknown Rx guaiFENesin 400 mg PO Q4H PRN #24 tablet 08/31/18 Unknown Rx predniSONE [Deltasone] 40 mg PO QDAY 5 Days #10 tab 08/31/18 Unknown Rx DOXYCYCLINE Hyclate [Vibramycin 100 mg PO Q12HR #20 capsule 08/21/19 Unknown Rx CAP] Ibuprofen [Motrin] 600 mg PO Q8H PRN #20 tablet 08/21/19 Unknown Rx Triamcinolone Acetonide 1 applicatio TP Q12H #1 tube 08/21/19 Unknown Rx [Triamcinolone Acetonide Oint 0.5%] metroNIDAZOLE [Flagyl] 500 mg PO Q12HR #14 tab 08/21/19 Unknown Rx ED Physical Exam - General Limitations: No Limitations General appearance: alert, in no apparent distress - Head Head exam: Present: atraumatic, normocephalic - ENT ENT exam: Present: mucous membranes moist - Neurological Exam Neurological exam: Present: alert, oriented X3 - Psychiatric Psychiatric exam: Present: normal affect, normal mood - Skin Skin exam: Present: warm, dry, intact, normal color. Absent: rash ED Course Vital Signs 11/08/19 14:29 Temperature 99.1 F Pulse Rate 89 Respiratory 18 Rate Blood Pressure 106/64 O2 Sat by Pulse 98 Oximetry ED Medical Decision Making - Lab Data Laboratory Last Values Urine Color Anne Marie (Yellow) 11/08/19 14:50 Urine Turbidity Clear (Clear) 11/08/19 14:50 Urine pH 5.0 (5.0-7.0) 11/08/19 14:50 Ur Specific [place] 1.029 (1.003-1.030) 11/08/19 14:50 Urine Protein 30 mg/dl mg/dL (Negative) 11/08/19 14:50 Urine Glucose (UA) Neg mg/dL (Negative) 11/08/19 14:50 Urine Ketones Tr mg/dL (Negative) 11/08/19 14:50 Urine Blood Neg (Negative) 11/08/19 14:50 Urine Nitrite Neg (Negative) 11/08/19 14:50 Urine Bilirubin Neg (Negative) 11/08/19 14:50 Urine Urobilinogen 4.0 mg/dL (<2.0) 11/08/19 14:50 Ur Leukocyte Esterase Neg (Negative) 11/08/19 14:50 Urine WBC (Auto) 5.0 /HPF (0.0-6.0) 11/08/19 14:50 Urine RBC (Auto) 2.0 /HPF (0.0-6.0) 11/08/19 14:50 U Epithel Cells (Auto) 9.0 /HPF (0-13.0) 11/08/19 14:50 Urine Mucus 3+ /HPF 11/08/19 14:50 Urine HCG, Qual Negative (Negative) 11/08/19 14:50 - Medical Decision Making 24-year-old -Maced[place] female presents to the emergency room reporting that she has been having some burning with urination for a few days. Patient denies any vaginal discharge or pelvic pain. Patient also reports that her sexual partner was seen here earlier and was treated for STD. Urinalysis is negative for any acute infection. Recommend to follow-up at a ELECTRON[facility] EQUIPMENT REPAIRMEN or health department for a full STD work-up. Critical care attestation.: If time is entered above; I have spent that time in minutes in the direct care of this critically ill patient, excluding procedure time. ED Disposition Clinical Impression: Dysuria Disposition: DC-01 TO HOME OR SELFCARE Is pt being admited?: No Does the pt Need Aspirin: No Condition: Stable Instructions: Dysuria (ED) Additional Instructions: Urinalysis is negative for any acute infection. Recommend to follow-up at a [facility] EQUIPMENT REPAIR[facility] or health department for a full STD work-up. Referrals: [facility] [Provider Group] - 3-5 Days [facility] [Provider Group] - 3-5 Days [facility] [Provider Group] - 3-5 Days [facility] [Outside] - 3-5 Days [facility] [Outside] - 3-5 Days
== END 2019-11-08 15:58 | disposition home or self-care (01) ==
LOC: ED 14:27
DX: R30.0 Dysuria (principal); R30.9 Painful micturition, unspecified; J45.909 Unspecified asthma, uncomplicated; Z98.890 Other specified postprocedural states; Z79.899 Other long term (current) drug therapy
CPT/HCPCS: 81001; 81025; 99283

== ENCOUNTER 2020-02-14 20:21 | Emergency (ER) | payer MEDICAID ==
[2020-02-14 20:36] VITALS: BP 111/51
[2020-02-14 21:54] LABS: HCG Qualitative,Urine Negative (Negative)
[2020-02-14 22:01] LABS: Bilirubin,Urine SM (Negative); Blood,Urine NEG (Negative); Color,Urine Amber (Yellow); Mucus,Urine 3+ /HPF
[2020-02-14 22:17] LABS: Ictotest,Urine Negative (Negative)
== END 2020-02-14 22:00 | disposition left against medical advice (07) ==
LOC: ED 20:21
DX: L29.2 Pruritus vulvae (principal); Z53.21 Procedure and treatment not carried out due to patient leaving prior to being seen by health care provider
CPT/HCPCS: 81001; 81025; 87086

== ENCOUNTER 2020-05-21 13:28 | Emergency (ER) | payer MEDICAID ==
[2020-05-21 13:39] VITALS: BP 97/57
[2020-05-21] MEDS ORDERED: IBUPROFEN 800 MG TAB PO ONE (14:39)
[2020-05-21] MEDS ORDERED: predniSONE 20 MG TAB PO ONE (14:40)
[2020-05-21] MEDS ORDERED: BUTALB/ACETAMINOPHEN/CAFFEINE TAB PO ONE (14:40)
--- NOTE | 2020-05-21 14:46 | Emergency Department Report ---
ED General Adult HPI - General Chief complaint: Adult Asthma Stated complaint: ASTHMA Time Seen by Provider: 05/21/20 13:42 Source: patient Mode of arrival: Ambulatory Limitations: No Limitations - History of Present Illness Initial comments: 25-year-old -Prydeinig female patient presents with complaints of intermittent headache since yesterday and wheezing this morning. She reports history of asthma and states this feels like her normal asthma exacerbation. She states she recently ran out of her albuterol inhaler. She denies any cough, shortness of breath, chest pain, fever/chills/sweats, abdominal pain, or nausea/vomiting/diarrhea. Patient rates her current headache as 8/10 in severity and states it feels like a throbbing tight band around her head. She denies thunderclap onset or worst headache of her life. Patient reports she has not tried any [id number]-vvp-[id number] medications for her headache. She also denies any head injury, vision changes, numbness/tingling/weakness in her limbs, difficulty with speech/ambulation, or history of CVA. Severity scale (0 -10): 0 - Related Data Previous Rx's Medication Instructions Recorded Last Taken Type Cyclobenzaprine [Flexeril] 10 mg PO TID PRN #12 tablet 12/26/16 Unknown Rx Ibuprofen [Motrin] 600 mg PO Q8H PRN #25 tablet 12/26/16 Unknown Rx Cephalexin [Keflex] 500 mg PO TID #30 capsule 02/01/17 Unknown Rx Sulfamethoxazole/Trimethoprim 1 each PO BID #20 tablet 02/01/17 Unknown Rx [Bactrim DS TAB] traMADoL [Ultram] 50 mg PO Q4HR PRN #20 tablet 02/01/17 Unknown Rx Nitrofurantoin Monohyd/M-Cryst 100 mg PO Q12H #20 capsule 04/24/18 Unknown Rx [Macrobid 100 mg Capsule] Cetirizine HCl/Pseudoephedrine 1 each PO QDAY #30 tab.er.12h 07/02/18 Unknown Rx [Zyrtec-D Tablet] Fluticasone [Flonase] 1 spray NS QDAY #1 bottle 07/02/18 Unknown Rx traMADoL [Ultram] 50 mg PO Q6HR PRN #20 tablet 07/02/18 Unknown Rx Acetaminophen 500 mg PO Q8H PRN #20 tablet 07/21/18 Unknown Rx ALBUTEROL Inhaler(NF) [VENTOLIN 2 puff IH Q4H PRN #1 inha 08/31/18 Unknown Rx Inhaler(NF)] Acetaminophen [Tylenol] 650 mg PO QID PRN #30 capsule 08/31/18 Unknown Rx Azithromycin [Zithromax Z-RENZO] 250 mg PO DAILY #6 tab 08/31/18 Unknown Rx Ondansetron [Zofran Odt] 4 mg PO Q8HR PRN #12 tab.rapdis 08/31/18 Unknown Rx guaiFENesin 400 mg PO Q4H PRN #24 tablet 08/31/18 Unknown Rx predniSONE [Deltasone] 40 mg PO QDAY 5 Days #10 tab 08/31/18 Unknown Rx DOXYCYCLINE Hyclate [Vibramycin 100 mg PO Q12HR #20 capsule 08/21/19 Unknown Rx CAP] Ibuprofen [Motrin] 600 mg PO Q8H PRN #20 tablet 08/21/19 Unknown Rx Triamcinolone Acetonide 1 applicatio TP Q12H #1 tube 08/21/19 Unknown Rx [Triamcinolone Acetonide Oint 0.5%] metroNIDAZOLE [Flagyl] 500 mg PO Q12HR #14 tab 08/21/19 Unknown Rx Albuterol Sulfate [Proventil Hfa] 6.7 gm IH QID PRN #1 hfa.aer.ad 05/21/20 Unknown Rx methylPREDNISolone [Medrol 4MG 4 mg PO UNK #1 tab.ds.pk 05/21/20 Unknown Rx DOSEPAK (21 tabs)] Allergies Allergy/AdvReac Type Severity Reaction Status Date / Time No Known Allergies Allergy Unverified 09/04/18 10:03 ED Review of Systems ROS: Stated complaint: ASTHMA Other details as noted in HPI Constitutional: denies: chills, diaphoresis, fever, malaise Eyes: vision change Respiratory: wheezing. denies: cough, shortness of breath Cardiovascular: denies: chest pain Endocrine: denies: excessive sweating Gastrointestinal: denies: abdominal pain, nausea, vomiting, diarrhea Skin: denies: change in color Neurological: headache. denies: numbness, paresthesias, confusion, abnormal gait ED Past Medical Hx - Past Medical History Previous Medical History?: Yes Hx Asthma: Yes Additional medical history: vaginal delivery x 1 - Surgical History Past Surgical History?: Yes Additional Surgical History: - Social History Smoking Status: Never Smoker Substance Use Type: None - Medications Home Medications: Home Medications Medication Instructions Recorded Confirmed Last Taken Type Cyclobenzaprine [Flexeril] 10 mg PO TID PRN #12 tablet 12/26/16 Unknown Rx Ibuprofen [Motrin] 600 mg PO Q8H PRN #25 tablet 12/26/16 Unknown Rx Cephalexin [Keflex] 500 mg PO TID #30 capsule 02/01/17 Unknown Rx Sulfamethoxazole/Trimethoprim 1 each PO BID #20 tablet 02/01/17 Unknown Rx [Bactrim DS TAB] traMADoL [Ultram] 50 mg PO Q4HR PRN #20 tablet 02/01/17 Unknown Rx Nitrofurantoin Monohyd/M-Cryst 100 mg PO Q12H #20 capsule 04/24/18 Unknown Rx [Macrobid 100 mg Capsule] Cetirizine HCl/Pseudoephedrine 1 each PO QDAY #30 tab.er.12h 07/02/18 Unknown Rx [Zyrtec-D Tablet] Fluticasone [Flonase] 1 spray NS QDAY #1 bottle 07/02/18 Unknown Rx traMADoL [Ultram] 50 mg PO Q6HR PRN #20 tablet 07/02/18 Unknown Rx Acetaminophen 500 mg PO Q8H PRN #20 tablet 07/21/18 Unknown Rx ALBUTEROL Inhaler(NF) [VENTOLIN 2 puff IH Q4H PRN #1 inha 08/31/18 Unknown Rx Inhaler(NF)] Acetaminophen [Tylenol] 650 mg PO QID PRN #30 capsule 08/31/18 Unknown Rx Azithromycin [Zithromax Z-RENZO] 250 mg PO DAILY #6 tab 08/31/18 Unknown Rx Ondansetron [Zofran Odt] 4 mg PO Q8HR PRN #12 tab.rapdis 08/31/18 Unknown Rx guaiFENesin 400 mg PO Q4H PRN #24 tablet 08/31/18 Unknown Rx predniSONE [Deltasone] 40 mg PO QDAY 5 Days #10 tab 08/31/18 Unknown Rx DOXYCYCLINE Hyclate [Vibramycin 100 mg PO Q12HR #20 capsule 08/21/19 Unknown Rx CAP] Ibuprofen [Motrin] 600 mg PO Q8H PRN #20 tablet 08/21/19 Unknown Rx Triamcinolone Acetonide 1 applicatio TP Q12H #1 tube 08/21/19 Unknown Rx [Triamcinolone Acetonide Oint 0.5%] metroNIDAZOLE [Flagyl] 500 mg PO Q12HR #14 tab 08/21/19 Unknown Rx Albuterol Sulfate [Proventil Hfa] 6.7 gm IH QID PRN #1 hfa.aer.ad 05/21/20 Unknown Rx methylPREDNISolone [Medrol 4MG 4 mg PO UNK #1 tab.ds.pk 05/21/20 Unknown Rx DOSEPAK (21 tabs)] ED Physical Exam - General Limitations: No Limitations General appearance: alert, in no apparent distress - Head Head exam: Present: atraumatic, normocephalic - Eye Eye exam: Present: normal appearance. Absent: scleral icterus - ENT ENT exam: Present: mucous membranes moist - Neck Neck exam: Present: normal inspection - Respiratory Respiratory exam: Present: normal lung sounds bilaterally, wheezes (minimal ). Absent: respiratory distress, rales, rhonchi, stridor, accessory muscle use - Cardiovascular Cardiovascular Exam: Present: regular rate, normal rhythm. Absent: systolic murmur, diastolic murmur, rubs, gallop - GI/Abdominal GI/Abdominal exam: Present: soft, normal bowel sounds - Back Exam Back exam: Present: full ROM - Neurological Exam Neurological exam: Present: alert, oriented X3, CN II-XII intact, normal gait. Absent: motor sensory deficit - Expanded Neurological Exam Expanded Cerebellar function: Finger to Nose: Normal, Heel to Levi: Normal, Romberg: Normal Motor strength exam: RUE: 5, LUE: 5, RLE: 5, LLE: 5 - Psychiatric Psychiatric exam: Present: normal affect, normal mood - Skin Skin exam: Present: warm, dry, intact, normal color. Absent: rash, cyanosis, diaphoretic, ecchymosis ED Course Vital Signs 05/21/20 13:38 Temperature 98.2 F Pulse Rate 85 Respiratory 16 Rate Blood Pressure 97/57 [Right] O2 Sat by Pulse 98 Oximetry ED Medical Decision Making - Medical Decision Making 25-year-old -Prydeinig female patient presents with complaints of intermittent headache since yesterday and wheezing this morning. She reports history of asthma and states this feels like her normal asthma exacerbation. She states she recently ran out of her albuterol inhaler. She denies any cough, shortness of breath, chest pain, fever/chills/sweats, abdominal pain, or nausea/vomiting/diarrhea. Patient rates her current headache as 8/10 in severity and states it feels like a throbbing tight band around her head. She denies thunderclap onset or worst headache of her life. Patient reports she has not tried any hikn-ajt-axlxtdu medications for her headache. She also denies any head injury, vision changes, numbness/tingling/weakness in her limbs, difficulty with speech/ambulation, or history of CVA. Minimal wheezing noted on exam. Vitals are normal. Neuro exam is normal. Patient given Fioricet, prednisone, and ibuprofen. Patient states she does not wish to wait for reevaluation after medications and elects to discharge home. Reports if her symptoms do not improve with the medication so she will report back to the ED. Discussed signs and symptoms that should prompt immediate return to the emergency department in detail with patient who verbalized understanding. She is well-appearing and stable for discharge home. Patient to follow-up with her primary care doctor next week as scheduled Critical care attestation.: If time is entered above; I have spent that time in minutes in the direct care of this critically ill patient, excluding procedure time. ED Disposition Clinical Impression: Tension headache Asthma exacerbation Qualifiers: Asthma severity: mild Asthma persistence: intermittent Qualified Code(s): J45.21 - Mild intermittent asthma with (acute) exacerbation Disposition: TO HOME OR SELFCARE Is pt being admited?: No Condition: Stable Instructions: Tension Headache, Adult, Asthma, Adult Prescriptions: methylPREDNISolone [Medrol 4MG DOSEPAK (21 tabs)] 4 mg PO UNK #1 tab.ds.pk Albuterol Sulfate [Proventil Hfa] 6.7 gm IH QID PRN #1 hfa.aer.ad PRN Reason: Shortness Of Breath Referrals: PRIMARY CAREMD [Referring] - 05/25/20 Forms: Work/School Release Form(ED)
== END 2020-05-21 14:50 | disposition home or self-care (01) ==
LOC: ED 13:28
DX: J45.901 Unspecified asthma with (acute) exacerbation (principal); G44.209 Tension-type headache, unspecified, not intractable; Z98.890 Other specified postprocedural states; Z79.1 Long term (current) use of non-steroidal anti-inflammatories (NSAID); Z79.2 Long term (current) use of antibiotics; Z79.899 Other long term (current) drug therapy
CPT/HCPCS: 99282; J7512

== ENCOUNTER 2020-10-10 06:53 | Observation (INO) | payer MEDICAID, OTHER ==
[2020-10-10] MEDS ORDERED: SODIUM CHLORIDE 0.9% 1000 ML 1,000 ML IV ONE ×2 (07:14)
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
[2020-10-10 08:11] LABS: Hematocrit 45.4 % (30.3-42.9); Hemoglobin 14.9 gm/dl (10.1-14.3); Mean Corpuscular HGB Conc 33 % (30-34); Mean Corpuscular Volume 98 fl (79-97); Platelet Count 265 K/mm3 (140-440); Red Blood Count 4.61 M/mm3 (3.65-5.03); Red Cell Distribution Width 14.1 % (13.2-15.2)
[2020-10-10 08:17] LABS: Alanine Aminotransferase 8 units/L (7-56); Albumin 3.5 g/dL (3.9-5); Blood Urea Nitrogen 9 mg/dL (7-17); Calcium 8.2 mg/dL (8.4-10.2); Hemolysis Index 26
[2020-10-10 08:18] LABS: BUN/Creatinine Ratio 15
[2020-10-10 08:22] LABS: INR 1.14 (0.87-1.13)
[2020-10-10 08:23] LABS: Partial Thromboplastin Time 29.2 Sec. (24.2-36.6)
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
[2020-10-10 10:06] LABS: Platelet Estimate Consistent w Auto; RBC Morphology Normal; Total Cells Counted 100
[2020-10-10 10:32] LABS: Bilirubin,Urine NEG (Negative); Blood,Urine NEG (Negative); Color,Urine Yellow (Yellow); Mucus,Urine FEW /HPF; Protein,Urine <15 mg/dL mg/dL (Negative); Urobilinogen,Urine < 2.0 mg/dL (<2.0)
[2020-10-10 10:40] LABS: Amphetamine Screen,Urine Negative; Benzodiazepines Screen,Urine Negative; Cannabinoid Screen,Urine Negative; Cocaine Screen,Urine Negative; Methadone Screen,Urine Negative; Opiate Screen,Urine Negative
[2020-10-10 11:07] LABS: BUN/Creatinine Ratio 16; Blood Urea Nitrogen 8 mg/dL (7-17); Calcium 7.4 mg/dL (8.4-10.2); Hemolysis Index 34
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
[2020-10-10] MEDS ORDERED: PIPERACIL/TAZOBACTA 4.5/NS 100 4.5 GM/100 ML VIAL IV ONE (12:06)
[2020-10-10] MEDS ORDERED: SODIUM CHLORIDE 0.9% 1000 ML 1,000 ML ONE (12:26)
[2020-10-10] MEDS ORDERED: SODIUM CHLORIDE 0.9% 1000 ML 1,000 ML IV SCH (12:45)
[2020-10-10] MEDS ORDERED: ACETAMINOPHEN 500 MG TAB PO PRN (23:06)
[2020-10-10] MEDS ORDERED: ALBUTEROL 8.5 GM MDI INHALATION IH PRN (23:06)
[2020-10-10] MEDS ORDERED: CYCLOBENZAPRINE 10 MG TAB PO PRN (23:06)
[2020-10-10] MEDS ORDERED: HYDROmorphone 1 MG/1 ML INJ IV PRN (23:08)
[2020-10-10] MEDS ORDERED: ONDANSETRON 4 MG/2 ML INJ IV PRN (23:08)
[2020-10-10] MEDS ORDERED: ACETAMINOPHEN 325 MG TAB PO PRN (23:08)
[2020-10-10] MEDS ORDERED: diphenhydrAMINE 50 MG/ML VIAL IV PRN (23:10)
[2020-10-10] MEDS ORDERED: TRIAMCINOLONE ACETONIDE TP SCH (23:15)
[2020-10-10] MEDS ORDERED: ALBUTEROL 2.5 MG/3 ML NEBU IH PRN (23:22)
[2020-10-10] MEDS: oxyCODONE /ACETAMINOPHEN 5-325MG TAB PO PRN (23:49)
[2020-10-10] MEDS: FAMOTIDINE 20 MG/2 ML INJ IV SCH (23:49)
[2020-10-10] MEDS: dexAMETHasone 4 MG/ML VIAL IV SCH (23:49)
[2020-10-10] MEDS: TRIAMCINOLONE 0.5% CREAM 15 GM TP SCH (23:51)
[2020-10-11 04:58] LABS: Hematocrit 38.2 % (30.3-42.9); Hemoglobin 13.1 gm/dl (10.1-14.3); Mean Corpuscular HGB Conc 34 % (30-34); Mean Corpuscular Volume 97 fl (79-97); Platelet Count 198 K/mm3 (140-440); Red Blood Count 3.96 M/mm3 (3.65-5.03); Red Cell Distribution Width 13.6 % (13.2-15.2)
[2020-10-11 05:20] LABS: Alanine Aminotransferase 9 units/L (7-56); Albumin 3.7 g/dL (3.9-5); Blood Urea Nitrogen 7 mg/dL (7-17); Calcium 7.9 mg/dL (8.4-10.2); Hemolysis Index 9
[2020-10-11 05:22] LABS: BUN/Creatinine Ratio 14
[2020-10-11] MEDS: dexAMETHasone 4 MG/ML VIAL IV SCH (05:41)
[2020-10-11] MEDS: oxyCODONE /ACETAMINOPHEN 5-325MG TAB PO PRN ×2 (05:42→14:38)
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
[2020-10-11 06:41] LABS: Total Cells Counted 100
[2020-10-11 06:42] LABS: Platelet Estimate Consistent w Auto
[2020-10-11] MEDS ORDERED: HEPARIN 5,000 UNIT/1 ML VIAL SUB-Q SCH ×2 (10:00)
[2020-10-11] MEDS ORDERED: LORATADINE/PSEUDOEPHEDRINE 10-240 MG TAB 24HR PO SCH (10:00)
[2020-10-11] MEDS ORDERED: CETIRIZINE HCL PO SCH (10:00)
[2020-10-11] MEDS ORDERED: PSEUDOEPHEDRINE PO SCH (10:00)
[2020-10-11] MEDS ORDERED: FLUTICASONE PROPIONATE NASAL SPRAY 16 GM NS SCH (10:00)
[2020-10-11] MEDS: TRIAMCINOLONE 0.5% CREAM 15 GM TP SCH (10:13)
[2020-10-11] MEDS: FAMOTIDINE 20 MG/2 ML INJ IV SCH (10:13)
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
[2020-10-11 12:45] VITALS: BP 107/50
== END 2020-10-11 16:00 | disposition home or self-care (01) ==
LOC: ED 06:53 → 3A 12:10 → INTOOBSV 12:10 → 3B-SURG 21:21
PROVIDERS: ADMIT Internal Medicine; ATTEND Internal Medicine
DX: T78.40XA Allergy, unspecified, initial encounter (principal); R55 Syncope and collapse; D72.829 Elevated white blood cell count, unspecified; E87.2 Acidosis; T79.9XXA Unspecified early complication of trauma, initial encounter; J45.909 Unspecified asthma, uncomplicated; F17.200 Nicotine dependence, unspecified, uncomplicated; R10.9 Unspecified abdominal pain
CPT/HCPCS: 36415; 70450; 71045; 72125; 73620; 74177; 80053; 80307; 81001; 82140; 82805; 82962; 83036; 84703; 85007; 85025; 85610; 85730; 87040; 96361; 96365; 96372; 96375; 96376; 99285; G0378; J1100; J1170; J1644; J2543; J7030; Q9967; 80048; 80320; G0480